=== PATIENT | female | born 1965 | race Caucasian/White ===

== ENCOUNTER 2017-02-02 10:14 | Emergency (ER) | payer BC ==
[~2017-02-02] VITALS: Ht 157.5 cm; Wt 80.3 kg
[2017-02-02 10:15] VITALS: BP_SYST 123
[2017-02-02] MEDS ORDERED: PIPERACILLIN/TAZO 3.38 GM in NS 50 ML IV ONE (10:45)
[2017-02-02] MEDS ORDERED: DIPHENHYDRAMINE INJ 50 MG/ML VIAL IVP ONE ×2 (10:45→16:15)
[2017-02-02] MEDS ORDERED: MORPHINE 4 MG/ML INJ. SYRINGE IVP ONE (10:45)
[2017-02-02] MEDS ORDERED: PIPERACILLIN/TAZOBACTAM 3.375 GM/VIAL (ZOSYN) IV ONE (10:58)
[2017-02-02 11:12] LABS: BASOPHILS % (AUTO) 0.5 % (0.0-2.0); EOSINOPHILS % (AUTO) 0.1 % (0.0-4.0); HEMATOCRIT 26.8 % (36-48); LYMPHOCYTES # (AUTO) 0.7 K/uL (1.0-5.5); LYMPHOCYTES % (AUTO) 24.6 % (20.5-51.5); MEAN CORPUSCULAR HEMOGLOBIN 29 pg (27-31); MEAN CORPUSCULAR HGB CONC 34 % (32-36); MEAN CORPUSCULAR VOLUME 86 fL (79.0-98.0); MONOCYTES # (AUTO) 0.4 K/uL (0.0-1.0); MONOCYTES % (AUTO) 13.1 % (1.7-9.3); NEUTROPHILS # (AUTO) 1.7 K/uL (1.8-7.7); NEUTROPHILS % (AUTO) 61.7 % (40.0-70.0); PLATELET COUNT (AUTO) 228 K/uL (130-430); RED BLOOD CELL COUNT(AUTO) 3.11 MIL/uL (4.2-6.2); RED CELL DISTRIBUTION WIDTH 22.4 % (9.0-15.0); WHITE BLOOD COUNT (AUTO) 2.8 K/uL (4.8-10.8)
[2017-02-02 11:25] LABS: PROTHROMBIN TIME 10.4 SECS (9.5-12.5)
[2017-02-02 11:48] LABS: CALCIUM 9.5 mg/dL (8.4-11.0); CREATININE 0.81 mg/dL (0.55-1.30); POTASSIUM 3.9 mmol/L (3.5-5.1)
[2017-02-02 11:52] LABS: ALBUMIN 3.5 g/dL (3.4-4.8); TOTAL BILIRUBIN 0.4 mg/dL (0.0-1.0); TOTAL PROTEIN, SERUM 7.7 g/dL (6.4-8.3)
[2017-02-02] MEDS ORDERED: NACL 0.9% 1,000 ML IV ONE (16:45)
[2017-02-02] MEDS ORDERED: ONDANSETRON HCL 4 MG/2 ML VIAL IVP ONE (17:30)
[2017-02-02] MEDS ORDERED: HYDROmorphone 1 MG INJ. 1 MG/ML AMPUL IVP ONE (17:30)
[2017-02-02] MEDS ORDERED: MORPHINE 2 MG/ML INJ. SYRINGE IVP ONE (17:45)
[2017-02-02 18:57] VITALS: BP_SYST 99
== END 2017-02-02 18:57 | disposition short-term general hospital (02) ==
LOC: SED 10:19
DX: K56.69 Other intestinal obstruction (principal)
CPT/HCPCS: 36415; 71010; 74176; 80053; 83605; 83690; 85025; 85610; 87040; 93005; 96361; 96365; 96375; 99285; J1200; J2270 ×2; J2405; J2543; J7030